=== PATIENT | female | born 1945 | race Caucasian/White ===

== ENCOUNTER 2020-04-24 09:18 | Outpatient (CLI) | payer MEDICARE, OTHER, SELFPAY ==
--- NOTE | ~2020-04-24 | MM_ITS ---
EXAMINATION: MM screening theresa BI w willy HISTORY: Screening mammogram TECHNIQUE: Craniocaudal and mediolateral oblique 3-D tomosynthesis images were obtained and synthetic 2-D images were generated. CAD analysis was submitted and interpreted. COMPARISON: 02/04/2019, 01/30/2018, 01/22/2017 bilateral digital screening mammogram examinations BREAST PARENCHYMAL COMPOSITION: The breasts are almost entirely fatty. FINDINGS: There are scattered bilateral benign calcifications. There is no evidence of suspicious mas s, calcification, or architectural distortion to suggest malignancy in either breast. There has been no suspicious interval change. IMPRESSION: 1. No mammographic evidence of malignancy. 2. Recommend routine screening mammography in one year. BI-RADS Category 2: Benign finding(s). Reviewed, dictated and finalized at location A.
== END 2020-04-24 09:19 | disposition home or self-care (01) ==
LOC: ANHIMG 09:22
PROVIDERS: PCP Internal Medicine; Visit Provider Internal Medicine
DX: Z12.31 Encounter for screening mammogram for malignant neoplasm of breast (principal)
CPT/HCPCS: 77063; 77067

== ENCOUNTER 2021-05-05 14:54 | Outpatient (CLI) | payer MEDICARE, OTHER, SELFPAY ==
--- NOTE | ~2021-05-05 | MM_ITS ---
EXAMINATION: MM screening theresa BI w willy HISTORY: Screening TECHNIQUE: Craniocaudal and mediolateral oblique 3-D tomosynthesis images were obtained and synthetic 2-D images were generated. CAD analysis was submitted and interpreted. COMPARISON: Comparison to multiple prior studies sequentially, with oldest reviewed study dated 12/14. BREAST PARENCHYMAL COMPOSITION: There are scattered areas of fibroglandular density. FINDINGS: There is no evidence of suspicious mass, calcification, or architectural distortion to sugg est malignancy in either breast. There has been no suspicious interval change. IMPRESSION: 1. No mammographic evidence of malignancy. 2. Recommend routine screening mammography in one year. BI-RADS Category 1: Negative Reviewed, dictated and finalized at location A.
== END 2021-05-05 14:55 | disposition home or self-care (01) ==
PROVIDERS: PCP Internal Medicine; Visit Provider Internal Medicine
DX: Z12.31 Encounter for screening mammogram for malignant neoplasm of breast (principal)
CPT/HCPCS: 77063; 77067

== ENCOUNTER 2022-06-09 08:04 | Outpatient (CLI) | payer MEDICARE, OTHER, SELFPAY ==
--- NOTE | ~2022-06-09 | MM_ITS ---
EXAMINATION: MM screening theresa BI w willy HISTORY: Screening mammogram TECHNIQUE: Craniocaudal and mediolateral oblique 3-D tomosynthesis images were obtained and synthetic 2-D images were generated. CAD analysis was submitted and interpreted. COMPARISON: 05/05/2021, 04/24/2020, 02/04/2019 bilateral screening mammogram examinations BREAST PARENCHYMAL COMPOSITION: The breasts are almost entirely fatty. FINDINGS: Scattered bilateral benign calcifications. There is no evidence of suspicious mass, calcifi cation, or architectural distortion to suggest malignancy in either breast. There has been no suspici ous interval change. IMPRESSION: 1. No mammographic evidence of malignancy. 2. Recommend routine screening mammography in one year. BI-RADS Category 1: Negative Reviewed, dictated and finalized at location A.
== END 2022-06-09 08:05 | disposition home or self-care (01) ==
LOC: ANHIMG 08:06
PROVIDERS: PCP Internal Medicine; Visit Provider Internal Medicine
DX: Z12.31 Encounter for screening mammogram for malignant neoplasm of breast (principal)
CPT/HCPCS: 77063; 77067

== ENCOUNTER 2023-09-10 14:54 | Outpatient (CLI) | payer MEDICARE, OTHER, SELFPAY ==
--- NOTE | ~2023-09-10 | MM_ITS ---
EXAMINATION: MM screening theresa BI w willy HISTORY: Screening TECHNIQUE: Craniocaudal and mediolateral oblique 3-D tomosynthesis images were obtained and synthetic 2-D images were generated. CAD analysis was submitted and interpreted. COMPARISON: Comparison to multiple prior studies sequentially, with oldest reviewed study dated 01/22. BREAST PARENCHYMAL COMPOSITION: There are scattered areas of fibroglandular density. FINDINGS: There is no evidence of suspicious mass, calcification, or architectural distortion to sugg est malignancy in either breast. There has been no suspicious interval change. IMPRESSION: 1. No mammographic evidence of malignancy. 2. Recommend routine screening mammography in one year. BI-RADS Category 1: Negative Reviewed, dictated and finalized at location A. ETICIAN APPRENTICE
== END 2023-09-10 14:55 | disposition home or self-care (01) ==
LOC: ANHIMG 14:58
PROVIDERS: PCP Internal Medicine; Visit Provider Internal Medicine
DX: Z12.31 Encounter for screening mammogram for malignant neoplasm of breast (principal)
CPT/HCPCS: 77063; 77067; 93798

== ENCOUNTER 2023-09-13 09:45 | Outpatient (RCR) | payer MEDICARE, OTHER, SELFPAY | END 2023-09-13 11:11 | disposition home or self-care (01) | LOC: ANHCPREHAB 09:45 | PROVIDERS: PCP Internal Medicine | DX: Z95.2 Presence of prosthetic heart valve (principal) | CPT/HCPCS: 93798 ==

== ENCOUNTER 2023-10-23 16:01 | Emergency (ER) | payer MEDICARE, OTHER, SELFPAY ==
--- NOTE | ~2023-10-23 | XR_ITS ---
EXAMINATION: 1. XR humerus RT 2. XR shoulder RT min 2V DATE: 10/23/2023 16:51 INDICATION: Pain in proximal right humerus. TECHNIQUE: 2 views of right humerus and 4 views of right shoulder were obtained. COMPARISON: None. FINDINGS: RIGHT SHOULDER: There is a transverse fracture of surgical neck of proximal right humerus with impact ion and 12 degrees medial angulation of the distal fracture fragment. There is a large lipohemarthros is of glenohumeral joint. There is mild osteoarthritis of acromioclavicular joint and glenohumeral noah int. There are changes of aortic replacement. There is a left chest wall pacer with leads in the righ t atrium and right ventricle. RIGHT HUMERUS: Again seen is a two-part fracture of proximal right humerus. There is normal alignment at the elbow. IMPRESSION: 1. Two-part fracture of proximal right humerus. 2. Mild polyarticular osteoarthritis. 3. Large lipohemarthrosis of glenohumeral joint. Reviewed, dictated and finalized at location E. UTATIONAL THEORY SCIENTIST IMPRESSION: 1. Two-part fracture of proximal right humerus. 2. Mild polyarticular osteoarthritis. 3. Large lipohemarthrosis of glenohumeral joint.
[2023-10-23 16:19] VITALS: BP 135/68; PULSE 95; RESP 20; TEMP 36.5; O2SAT 99
--- NOTE | 2023-10-23 19:42 | PC.NURSE ---
Assumed care of pt. Report from dayshift. Pt sitting in wheelchair in room with family. Ice applied from triage to R shoulder. Distal PMS intact. Awaiting ERP eval.
--- NOTE | 2023-10-23 20:08 | ED.UPPEXIN ---
HPI - Extremity Injury (Upper) General Chief Complaint: Extremity Injury, Upper Stated Complaint: fall/arm injury Time Seen by Provider: 10/23/23 20:07 Source: patient, family (daughter and ) and RN notes reviewed (reviewed triage notes/summary; concur with this history recorded) Mode of arrival: ambulatory Limitations: no limitations History of Present Illness HPI narrative: 78 yo right hand dominant female tripped while cleaning the basement at approximately 2pm. She is complaining of right proximal arm and shoulder pain. no paresthesias. Not yet taken anything for pain. No loss of consciousness/muscle tone (not syncope), recalls the accident Related Data Allergies Allergy/AdvReac Type Severity Reaction Status Date / Time niacin Allergy Unknown Hives Verified 10/23/23 16:23 [facility] Past Medical History Medical History Pacemaker Family History Family History (Updated 06/26/23 @ 11:36 by Casandra Salazar RN) Father Hypertension Melanoma Mother Family history of malignant neoplasm of breast in first degree relative breast cancer unknown type Grandparent Diabetes mellitus Social History Social History Smoking status: Never smoker Alcohol intake: never Exam Narrative: GENERAL: Well-appearing, well-nourished, and in no acute distress. HEAD: Normocephalic, atraumatic. EYES: Non injected, non icteric ENT: Nares clear, no rhinorrhea or epistaxis. NECK: Supple. CHEST: Speaking in clear full sentences No respiratory distress. Ecchymosis along superior lateral aspect of right breast without abrasion/laceration/crepitus. HEART: Regular rate and rhythm. 2+ radial pulse in R hand with brisk capillary refill in fingers. EXTREMITIES: No edema. Ecchymosis at proximal R upper extremity/shoulder. ROM able to be performed to facilitate Xray studies but limited on exam secondary pain. Can demonstrate slight movement at the elbow including small movements of flexion/extension as well as full supination/pronation of the forearm. Able to slightly abduct arm away from body though limited secondary to pain. SKIN: Warm, dry. Also scattered ecchymosis on left forearm and left mid proximal arm in addition to the ecchymosis above. NEURO: Alert and oriented x3. Sensation intact throughout hand/wrist, forearm/proximal arm (including along deltoid), and shoulder. PSYCH: Normal mood and affect. Course Vital Signs Vital signs: Vital Signs Temperature 97.7 F 10/23/23 16:19 Pulse Rate 95 10/23/23 16:19 Respiratory Rate 20 10/23/23 16:19 Blood Pressure 135/68 10/23/23 16:19 Pulse Oximetry 99 10/23/23 16:19 Oxygen Delivery Room Air 10/23/23 16:19 Temperature 97.7 F 10/23/23 16:19 Pulse Rate 87 10/23/23 22:30 Respiratory Rate 16 10/23/23 22:30 Blood Pressure 144/74 H 10/23/23 22:30 Pulse Oximetry 98 10/23/23 22:30 Oxygen Delivery Room Air 10/23/23 16:19 MDM - Extremity Injury (Upper) MDM Narrative Medical decision making narrative: Patient is a R hand dominant female who presents with R proximal upper extremity pain and shoulder pain following a fall. No syncope/LOC. Afebrile without VS abnormalities. She does have a 2 part surgical neck fracture of the humerus. Pacemaker leads in place. Neurovascularly intact though full ROM limited secondary to pain. She is given pain medication. Discussed with phone circuit operator orthopedic surgeon Dr Orellana. Concurs with coaptation splint with sling and pain management and either follow up with himself if patient desires non-operative management. alternatively, patient had mentioned knowing Dr Gabe Parisi, an social media content specialist who performed upper extremity/shoulder procedures. I did mention this surgeon to Dr Orellana who concurs that this would be an appropriate specialist given Dr Parisi performs shoulder replacements which is what this patient may require.
[2023-10-23] MEDS: ACETAMINOPHEN 325 MG TABLET 650 MG PO (20:34)
[2023-10-23] MEDS: HYDROcodone/acetaminophen (*CRX) 5-325 MG TABLET 1 TAB PO ×2 (20:34→22:22)
--- NOTE | 2023-10-23 21:40 | PC.NURSE ---
Imaging disc provided to pt.
--- NOTE | 2023-10-23 22:28 | PC.NURSE ---
Sling placed on pt. Dr Rivera to bedside to check sling and splint. Pt requested more pain meds post splint. All questions answered and pt ambulatory with family to waiting room.
[2023-10-23 22:30] VITALS: BP 144/74; PULSE 87; RESP 16; O2SAT 98
== END 2023-10-23 22:30 | disposition home or self-care (01) ==
PROVIDERS: Emergency Provider Student in an Organized Health Care Education/Training Program; PCP Internal Medicine
DX: S42.221A 2-part displaced fracture of surgical neck of right humerus, initial encounter for closed fracture (principal); Z95.0 Presence of cardiac pacemaker; M19.011 Primary osteoarthritis, right shoulder; W01.0XXA Fall on same level from slipping, tripping and stumbling without subsequent striking against object, initial encounter
CPT/HCPCS: 73030; 73060; 99284; A4565; A9270

== ENCOUNTER 2024-10-28 14:28 | Outpatient (CLI) | payer MEDICARE, OTHER, SELFPAY ==
--- NOTE | ~2024-10-28 | MM_ITS ---
EXAMINATION: MM screening theresa BI w willy HISTORY: Screening TECHNIQUE: Craniocaudal and mediolateral oblique 3-D tomosynthesis images were obtained and synthetic 2-D images were generated. CAD analysis was submitted and interpreted. COMPARISON: Comparison to multiple prior studies sequentially, with oldest reviewed study dated 11/2017. BREAST PARENCHYMAL COMPOSITION: Not Dense: The breasts are almost entirely fatty. FINDINGS: There is no evidence of suspicious mass, calcification, or architectural distortion to sugg est malignancy in either breast. There has been no suspicious interval change. IMPRESSION: 1. No mammographic evidence of malignancy. 2. Recommend routine screening mammography in one year. BI-RADS Category 1: Negative Reviewed, dictated and finalized at location A. GHT REPRESENTATIVE
--- OUTSIDE RECORDS SUMMARY | 2024-10-28 15:02 | XMS_ITS | Referral Summary ---
Author Organization [facility] Address [address] [place] [id number] Care Team Providers Care Law Enforcement Instructor Name Role Phone Remberto Mckeon MD Primary Care Provider [phone] Allergies Active Allergy Reactions Criticality Noted Date Comments Atorvastatin Joint pain Low 12/05/2017 Ethinyl Estradiol Unknown 11/11/2015 Ezetimibe Unknown 12/05/2017 Levonorgestrel Unknown 11/11/2015 Niacin Flushing (skin) Low Peanut Other (See comments) Low 12/05/2017 Develops mouth sores; but eats peanuts occ Terbinafine Unknown 12/03/2017 Medications metFORMIN (GLUCOPHAGE) 500 mg tabletIndicatio ns:type 2 diabetes mellitus Take 500 mg by mouth daily before breakfast 9 Active polycarbophil (FIBERCON) 625 mg tabletIndicatio ns:constipation Take 625 mg by mouth nightly 8 Active amLODIPine (NORVASC) 5 mg tabletIndicatio ns:hypertension Take 5 mg by mouth nightly 9 Active allopurinol (ZYLOPRIM) 100 mg tabletIndicatio ns:prevention of acute gout attack Take 200 mg by mouth every morning 9 Active rosuvastatin (CRESTOR) 5 mg tabletIndicatio ns:hyperlipidem ia Take 5 mg by mouth every morning Active levothyroxine (SYNTHROID) 50 mcg tablet Take 50 mcg by mouth palliative care nurse practitioner before breakfast 9 Active cholecalciferol , vitamin D3, (VITAMIN D3 ORAL) Take 1 Dose by mouth daily before breakfast Active aspirin 325 mg enteric coated tabletIndicatio ns:Deep Vein Thrombosis Prevention Take 1 tablet (325 mg total) by mouth 2 (two) times a day 84 tablet 9 Active Accu-Chek SmartView Test Strip strip USE TO TEST BLOOD SUGAR D UTD 0 Active amoxicillin (AMOXIL) 500 mg tablet/capsule Take all 4 tablets 1 hour prior to dental appt. 4 tablet/capsul e 0 Active Active Problems Problem Noted Date Diagnosed Date Aortic stenosis, moderate 08/10/2020 Candidal vulvovaginitis 08/10/2020 Primary osteoarthritis of right knee 07/30/2019 Overview (07/30/2019): Added automatically from request for surgery [id number] HTN (hypertension) 03/27/2019 Pulmonary HTN 03/27/2019 HLD (hyperlipidemia) 03/27/2019 CKD (chronic kidney disease) 03/27/2019 DM2 (diabetes mellitus, type 2) 03/27/2019 Obesity (BMI 35.0-39.9 without comorbidity) 03/02 Murmur 03/27/2019 Gout 03/27/2019 Primary osteoarthritis of left knee 03/03/2019 Overview (03/03/2019): Added automatically from request for surgery [id number] Nonrheumatic aortic valve insufficiency 12/27/19 19 Obstructive sleep apnea 06/26/2018 Carotid bruit 05/14/2018 Fatigue 05/14/2018 Anemia 05/08/2018 Coarctation of aorta 12/05/2017 Type 2 diabetes mellitus wit h diabetic peripheral angiopathy without gangrene, without long-term current use of insulin 10/31/2017 Knee pain 05/03/2016 Arthralgia of multiple sites 08/26/2012 Immunizations Name Administration Dates Next Due Influenza, Quadrivalent, Hig h Dose, Preservative Free, Intrr 07/26/2020 Influenza, Unspecified 07/26/2020 Pneumococcal Polysaccharide PPV23 07/26/2020 ZOSTER LIVE 07/07/2014 Social History Tobacco Use Types Packs/Day Years Used Date Smoking Tobacco: Never Smokeless Tobacco: Never Alcohol Use Standard Drinks/Week Comments Not Currently 0 (1 standard drink = 0.6 oz pur e alcohol) rare AUDIT-C Answer Date Recorded Frequency of Alcohol Consumption Never 03/12/2019 Average Number of Drinks Not on file 019 Frequency of Binge Drinking Not on file 03/01 Comments No Sex and Gender Information Value Date Recorded Sex Assigned at Not on file Legal Sex Female 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 Gender Identity Not on file Sexual Orientation Not on file Last Filed Vital Signs Vital Sign Reading Time Taken Comments Blood Pressure 142/70 08/28/2019 10:52 AM SOLAR ENERGY SALES SPECIALIST Pulse 82 08/28/2019 10:52 AM SOLAR ENERGY SALES SPECIALIST Temperature 36.2 ??C (97.2 ??F) 08/28/2019 1 0:52 AM SOLAR ENERGY SALES SPECIALIST Respiratory Rate 18 08/28/2019 10:5 2 AM SOLAR ENERGY SALES SPECIALIST Oxygen Saturation 97% 08/28/2019 10: 52 AM SOLAR ENERGY SALES SPECIALIST Inhaled Oxygen Concentration - - Weight 102.6 kg (226 lb 3.2 oz) 08/23/2020 9:41 AM SOLAR ENERGY SALES SPECIALIST Height 160 cm (5' 3 ) 08/23/2020 9:41 AM SOLAR ENERGY SALES SPECIALIST Body Mass Index 40.07 08/23/2020 9:41 AM SOLAR ENERGY SALES SPECIALIST Plan of Treatment Not on file Medical Devices Implanted Type Area Machine Steak Tenderizer Device Identifier Shelf Expiration Date Model / Serial / Lot [employer] [id number] Attune Cruciate Retain Cementless Knee Right 6 Narrow Component - Sn/A - [id number] Implanted:Qty: 1 on 08/21/2019 by Fabián Barker MD at [facility] Other - see comments Right: Knee [employer] [id number] 02/28/2029 [id number] / N/A / [id number] [employer] [id number] Attune Cementless Rotate Platform Knee 6 Baseplate Tibial - Sn/A - [id number] Implanted:Qty: 1 on 08/21/2019 by Fabián Barker MD at [facility] Other - see comments Right: Knee [employer] [id number] 12/29/2028 [id number] / N/A / [id number] [employer] [id number] Attune 5mm Cruciate Retaining Rotate Platform Knee 6 Insert - Sn/A - [id number] Implanted:Qty: 1 on 08/21/2019 by Fabián Barker MD at [facility] Other - see comments Right: Knee [employer] [id number] 05/31/2024 [id number] / N/A / [id number] [employer] [id number] Attune 5mm Cruciate Retaining Rotate Platform Knee 6 Insert - [id number] Implanted:Qty: 1 on 04/01/2019 by Fabián Barker MD at [facility] Left: Knee [employer] [id number] 10/31/2023 [id number] / / [id number] [employer] [id number] Attune Cementless Rotate Platform Knee 6 Baseplate Tibial - [id number] Implanted:Qty: 1 on 04/01/2019 by Fabián Barker MD at [facility] Left: Knee [employer] [id number] 07/31/2027 [id number] / / [id number] [employer] [id number] Attune Cruciate Retain Cementless Knee Left 6 Narrow Component - [id number] Implanted:Qty: 1 on 04/01/2019 by Fabián Barker MD at [facility] Left: Knee [employer] [id number] 04/30/2028 [id number] / / [id number] Insurance MEDICARE [facility] Member Subscriber Plan / Payer ( fective 2009-Present) Name:Yaz Marion Relation to Subscriber:Self Name:Yaz Marion Payer ID:[id number] Group ID:[id number] Type:COMMERCIAL Address: [facility] [address] [place], [place] [facility] Member Subscriber Plan / Payer ( fective 2009-) Name:Yaz Marion Relation to Subscriber:Self Name:Yaz Marion Payer ID:[id number] Group ID:[id number] Type:COMMERCIAL Address: [facility] [address], [place] Advance Directives For more information, please contact: [phone] * Full Code (Latest Code Status on File) Date Activated Date Inactivated Comments 08/21/2019 9:23 AM 08/22/2019 4:50 PM * Full Code Date Activated Date Inactivated Comments 04/01/2019 5:45 PM 04/02/2019 6:44 PM Care Teams Law Enforcement Instructor Relationship Specialty Start Date End Date Remberto Mckeon MD [address] [place] [address] PCP - General Internal Medicine 01/02/19
--- OUTSIDE RECORDS SUMMARY | 2024-10-28 15:03 | XMS_ITS | Clinical Summary ---
Author Organization [facility] Address [address] [place] [id number] Care Team Providers Care Representative Phlebotomy Services Name Role Phone Remberto Mckeon MD Primary Care Provider [phone] Allergies Active Allergy Reactions Criticality Noted Date [...] mcg tablet Take 50 mcg by mouth mechanical manufacturing technician before breakfast 9 Active cholecalciferol , vitamin [...] (07/30/2019): Added automatically from request for surgery [id number] HTN (hypertension) 03/27/2019 Pulmonary HTN 03/27/2019 HLD (hyperlipidemia) 03/27/2019 CKD (chronic kidney disease) 03/27/2019 DM2 (diabetes mellitus, type 2) 03/27/2019 Obesity (BMI 35.0-39.9 without comorbidity) 03/02 Murmur 03/27/2019 Gout 03/27/2019 Primary osteoarthritis of left knee 03/03/2019 Overview (03/03/2019): Added automatically from request for surgery [id number] Nonrheumatic aortic valve insufficiency 12/27/19 19 Obstructive [...] Pneumococcal Polysaccharide PPV23 07/26/2020 ZOSTER LIVE 07/07/2014 Surgical History Surgery Date Site/Laterality Comments HYSTERECTOMY 10/01/1978 - 09/30/1979 WRIST GANGLION EXCISION Right VAGINAL DELIVERY x 3 COLONOSCOPY UPPER GASTROINTESTINAL ENDOSCOPY ORAL SURGERY TOTAL KNEE ARTHROPLASTY 03/31/2019 - 04/30/2019 Left REDUCTION MAMMAPLASTY 1980s Bilateral Medical History Medical History Date Comments Gout Hypertension Heart murmur PONV (postoperative nausea and vomiting) HLD (hyperlipidemia) 03/27/2019 Diabetes mellitus (HCC) Family History Medical History Relation Name Comments Diabetes Brother Family history of diabetes mellitus - (Added by TW Conv) Valvular heart disease Brother Arthritis Daughter Family history of arthritis - (Added by TW Conv) Cancer Father Family history of malignant neoplasm - (Added by TW Conv) Hypertension Father Family history of hypertension - (Added by TW Conv) Melanoma Father Breast cancer Mother Cancer Mother Family history of malignant neoplasm - (Added by TW Conv) Allergic to Novacaine/Lidoca ine w/ dental procedures Son causes itching; no a naphylaxis Anesthesia problems Son Heart attack Son Relation Name Status Comments Brother Alive Daughter Alive Father (Age 73) Mother (Age 72) Son Alive [place] age 39 Social History Tobacco Use Types Packs/Day Years [...] on file Legal Sex Female 8:38 AM ELECTROLYSIS ENGINEER Gender Identity Not on file Sexual Orientation Not on file Obstetrics History Last Filed Vital Signs Vital Sign Reading Time Taken Comments Blood Pressure 142/70 08/28/2019 10:52 AM ELECTROLYSIS ENGINEER Pulse 82 08/28/2019 10:52 AM ELECTROLYSIS ENGINEER Temperature 36.2 ??C (97.2 ??F) 08/28/2019 1 0:52 AM ELECTROLYSIS ENGINEER Respiratory Rate 18 08/28/2019 10:5 2 AM ELECTROLYSIS ENGINEER Oxygen Saturation 97% 08/28/2019 10: 52 AM ELECTROLYSIS ENGINEER Inhaled Oxygen Concentration - - Weight 102.6 kg (226 lb 3.2 oz) 08/23/2020 9:41 AM ELECTROLYSIS ENGINEER Height 160 cm (5' 3 ) 08/23/2020 9:41 AM ELECTROLYSIS ENGINEER Body Mass Index 40.07 08/23/2020 9:41 AM ELECTROLYSIS ENGINEER Plan of Treatment Not on file Medical Devices Implanted Type Area Turbine Room Attendant Device Identifier Shelf Expiration Date Model / Serial / Lot [employer] [id number] Attune Cruciate Retain Cementless Knee Right 6 Narrow Component - Sn/A - [id number] Implanted:Qty: 1 on 08/21/2019 by Fabián Barker MD at [facility] Other - see comments Right: Knee [employer] [id number] 02/28/2029 [id number] / N/A / [id number] [employer] [id number] Attune Cementless Rotate Platform Knee 6 Baseplate Tibial - Sn/A - [id number] Implanted:Qty: 1 on 08/21/2019 by Fabián Barker MD at [facility] Other - see comments Right: Knee [employer] [id number] 12/29/2028 [id number] / N/A / [id number] [employer] [id number] Attune 5mm Cruciate Retaining Rotate Platform Knee 6 Insert - Sn/A - [id number] Implanted:Qty: 1 on 08/21/2019 by Fabián Barker MD at [facility] Other - see comments Right: Knee [employer] [id number] 05/31/2024 [id number] / N/A / [id number] [employer] [id number] Attune 5mm Cruciate Retaining Rotate Platform Knee 6 Insert - [id number] Implanted:Qty: 1 on 04/01/2019 by Fabián Barker MD at [facility] Left: Knee [employer] [id number] 10/31/2023 [id number] / / [id number] [employer] [id number] Attune Cementless Rotate Platform Knee 6 Baseplate Tibial - [id number] Implanted:Qty: 1 on 04/01/2019 by Fabián Barker MD at [facility] Left: Knee [employer] [id number] 07/31/2027 [id number] / / [id number] [employer] [id number] Attune Cruciate Retain Cementless Knee Left 6 Narrow Component - [id number] Implanted:Qty: 1 on 04/01/2019 by Fabián Barker MD at [facility] Left: Knee [employer] [id number] 04/30/2028 [id number] / / [id number] Insurance MEDICARE [employer] [place] [employer] [place] Advance Directives For more information, please contact: [phone] * Full Code (Latest Code Status on File) Date Activated Date Inactivated Comments 08/21/2019 9:23 AM 08/22/2019 4:50 PM * Full Code Date Activated Date Inactivated Comments 04/01/2019 5:45 PM 04/02/2019 6:44 PM Care Teams Representative Phlebotomy Services Relationship Specialty Start Date End Date Remberto Mckeon MD [address] [place] [address] PCP - General Internal Medicine 01/02/19
== END 2024-10-28 14:29 | disposition home or self-care (01) ==
PROVIDERS: PCP Internal Medicine; Visit Provider Internal Medicine
DX: Z12.31 Encounter for screening mammogram for malignant neoplasm of breast (principal)
CPT/HCPCS: 77063; 77067